=== PATIENT | male | born 1950 | race Caucasian/White ===

== ENCOUNTER 2024-02-06 12:49 | Emergency (ER) | payer MEDICARE, OTHER, SELFPAY ==
[2024-02-06 12:55] VITALS: BP 149/67; PULSE 57; RESP 18; TEMP 36.6; O2SAT 96; BMI 26.5
--- NOTE | 2024-02-06 13:10 | DI.US.S_ITS ---
PROCEDURE: US PERIPH VENOUS LOW EXTREM RT INDICATIONS: known superficial thrombosis, worsening TECHNIQUE: Real-time imaging, as well as color and pulse Doppler interrogation, were performed of the lower extremity deep veins from the inguinal ligament to the popliteal fossa, with documentation of the visualized calf veins. COMPARISON: None. FINDINGS: The common femoral, femoral, popliteal, and the visualized calf veins are normally compressible, and free of intraluminal thrombus. Color and pulse Doppler demonstrate normal phasic intraluminal flow. There is normal augmentation response to distal compression maneuver. Minimal thrombosis is present within the greater saphenous vein of the mid calf. IMPRESSION: No findings of lower extremity deep venous thrombosis. Mild appearance of superficial thrombophlebitis in the greater saphenous vein. Dictated by: Sharon Cedeno M.D. on 02/06/2024 at 13:48 Approved by: Sharon Cedeno M.D. on 02/06/2024 at 13:48
[2024-02-06 15:24] VITALS: BP 133/77; PULSE 57; RESP 17; O2SAT 96
--- NOTE | 2024-02-06 15:28 | ED.EXTPRO ---
HPI - Extremity Problem <Alana Ojeda PA-C - Last Filed: 02/06/24 15:36> General Chief complaint: Extremity Problem,Nontraumatic Stated complaint: sent from [facility] Time Seen by Provider: 02/06/24 14:02 History of Present Illness HPI Narrative: 73-year-old male with past medical history chronic venous insufficiency, superficial thrombophlebitis presents to the ED with worsening right lower leg pain and a skin ulcer. Patient states that he suffered some trauma 6 weeks ago, following which she was diagnosed in [place] with superficial thrombophlebitis, advised to take ibuprofen and 325 mg of aspirin daily. Patient states that he came here for the summer, over the last week his right lower leg has been more painful and he has noted a skin ulcer on his medial ankle. Denies numbness, tingling, weakness. Denies chest pain, shortness of breath. Able to bear weight and walk. Related Data Previous Rx's Medication Instructions Recorded cephalexin 500 mg capsule 500 mg PO QID 5 days #20 caps 02/06/24 Allergies Allergy/AdvReac Type Severity Reaction Status Date / Time No Known Drug Allergies Allergy Verified 02/06/24 12:55 Review of Systems <Alana Ojeda PA-C - Last Filed: 02/06/24 15:36> Constitutional Constitutional: Denies chills, Denies fatigue, Denies fever(s), Denies frequent falls, Denies lethargy and Denies weakness Eyes Eyes: Denies change in vision, Denies eye discharge, Denies irritation and Denies loss of vision ENT Ears, Nose, Mouth, and Throat: Denies change in voice, Denies dizziness, Denies neck pain, Denies sore throat and Denies throat swelling Cardiovascular Cardiovascular: Denies chest pain, Denies irregular heart rhythm, Denies lightheadedness, Denies palpitations, Denies dyspnea, Denies dyspnea on exertion and Denies orthopnea Respiratory Respiratory: Denies cough, Denies dyspnea, Denies dyspnea on exertion and Denies wheezing Gastrointestinal Gastrointestinal: Denies abdominal pain, Denies change in bowel habits, Denies diarrhea, Denies nausea and Denies vomiting Musculoskeletal Musculoskeletal: Denies neck pain and Denies numbness Comments: Right lower leg pain Integumentary/Breasts Skin/Breast: Denies pruritus, Denies erythema, Denies rash and Denies wounds Comments: Ulcer on medial ankle of right leg Neurologic Neurologic: Denies behavioral changes, Denies confusion, Denies dizziness, Denies frequent falls, Denies loss of vision, Denies numbness and Denies weakness Psychiatric Psychiatric: Denies anxiety, Denies behavioral changes, Denies confusion, Denies depression, Denies homicidal ideation and Denies suicidal ideation Endocrine Endocrine: Denies fatigue, Denies flushing and Denies palpitations Hematologic/Lymphatic Hematologic/Lymphatic: Denies easy bruising Allergic/Immunologic Allergic/Immunologic: Denies urticaria, Denies throat swelling and Denies wheezing Patient History <Alana Ojeda PA-C - Last Filed: 02/06/24 15:36> Social History Smoking Status: Never smoker Smoking Status: Never smoker alcohol intake frequency: 0-2 drinks per day Alcohol type: beer Substance Use Type: does not use Exam <Alana Ojeda PA-C - Last Filed: 02/06/24 15:36> Narrative Exam Narrative: Const General:?cooperative, healthy appearing and comfortable [facility] Head:?normal to inspection Ears:?hearing grossly normal bilaterally Nose:?external nose normal Face and sinus:?normal facial exam and sinuses nontender Mouth:?oral mucosae normal Throat:?posterior oropharynx normal Eyes General:?appearance normal, both eyes and all related structures Neck Neck:?normal visual inspection and no lymphadenopathy noted Resp Effort & Inspection:?normal respiratory effort Auscultation:?clear to auscultation bilaterally Cardio Rate:?regular rate Rhythm:?regular rhythm Musculoskeletal/integumentary Right lower leg and foot appears slightly more swollen than left. There is a skin ulcer on the medial aspect of the ankle with surrounding erythema. Neurovascularly intact. Compartments soft. Neuro General:?patient alert, patient awake and patient oriented x3 Initial Vital Signs Initial Vital Signs: Vital Signs Temperature 97.8 F 02/06/24 12:55 Pulse Rate 57 L 02/06/24 12:55 Respiratory Rate 18 02/06/24 12:55 Blood Pressure 149/67 H 02/06/24 12:55 Pulse Oximetry 96 02/06/24 12:55 Oxygen Delivery Method Room Air 02/06/24 12:55 <Rosa M Martinez MD - Last Filed: 02/06/24 15:51> Initial Vital Signs Initial Vital Signs: Vital Signs Temperature 97.8 F 02/06/24 12:55 Pulse Rate 57 L 02/06/24 12:55 Respiratory Rate 18 02/06/24 12:55 Blood Pressure 149/67 H 02/06/24 12:55 Pulse Oximetry 96 02/06/24 12:55 Oxygen Delivery Method Room Air 02/06/24 12:55 Course <Alana Ojeda PA-C - Last Filed: 02/06/24 15:36> Orders Ordered: ED Orders 02/06/24 13:10 US perip venous low extrem rt Stat Vital Signs Vital signs: Vital Signs - 8 hr 02/06/24 12:55 02/06/24 15:24 Temperature 97.8 F Pulse Rate 57 L 57 L Respiratory Rate 18 17 Blood Pressure 149/67 H 133/77 Pulse Oximetry 96 96 Oxygen Delivery Method Room Air Room Air <Rosa M Martinez MD - Last Filed: 02/06/24 15:51> Orders Ordered: ED Orders 02/06/24 13:10 [facility] venous low extrem rt Stat Vital Signs Vital signs: Vital Signs - 8 hr 02/06/24 12:55 02/06/24 15:24 Temperature 97.8 F Pulse Rate 57 L 57 L Respiratory Rate 18 17 Blood Pressure 149/67 H 133/77 Pulse Oximetry 96 96 Oxygen Delivery Method Room Air Room Air MDM - Extremity (Nontraumatic) <Alana Ojeda PA-C - Last Filed: 02/06/24 15:36> MDM Narrative Medical decision making narrative: 73-year-old male with past medical history chronic venous insufficiency, superficial thrombophlebitis presents to the ED with worsening right lower leg pain and a skin ulcer. Ultrasound shows mild appearance of superficial thrombophlebitis in the greater saphenous vein of the midcalf. The thrombosis is minimal. Given the thrombophlebitis and chronic venous insufficiency, patient does have some swelling of the right foot compared to the left. Patient has an ulcer on the medial aspect of his ankle, likely due to a combination of the chronic venous insufficiency and friction from foot wear. There is some surrounding erythema, suspicious for cellulitis. Prescribed antibiotics. Recommend patient avoid friction, apply compression stockings which he has, elevate the foot above heart level. Patient can continue NSAIDs, aspirin. Also recommend trialing lidocaine patches, heat packs. Recommend follow-up with PCP as soon as possible. ED return precautions were discussed with patient. Patient verbalized understanding. Medical records reviewed: Yes. Discharge Plan Departure Patient Disposition: Home Clinical Impression: Superficial thrombophlebitis Qualifiers: Superficial thrombophlebitis-Involved body area: lower extremity Laterality: right Qualified Code(s): I80.01 - Phlebitis and thrombophlebitis of superficial vessels of right lower extremity Cellulitis Qualifiers: Site of cellulitis: extremity Site of cellulitis of extremity: lower extremity Laterality: right Qualified Code(s): L03.115 - Cellulitis of right lower limb Instructions: DI for Cellulitis -- Adult, DI for Superficial Thrombophlebitis Activity Restrictions/Additional Instructions: You were evaluated in the ED today for right lower leg pain and a skin ulcer. The ultrasound shows no deep vein thrombosis, there is a mild appearance of superficial thrombophlebitis in the greater saphenous vein in the right calf area. This is consistent with the prior thrombophlebitis from 6 weeks ago. The lower leg ulcer could be due to a combination of chronic venous insufficiency and friction from foot wear due to the swelling. It is recommended that you avoid any friction to that area. There is also some concern for a skin infection for which you are being prescribed antibiotics. Please take the antibiotics as prescribed. Please keep the wound clean and dry and dressed while it heals well. You may continue to take 600 mg of ibuprofen every 8 hours with food. You may also apply lidocaine patches which are available under the brand name Salonpas. It is okay to apply Voltaren on the lower leg, however please avoid the area of the ulcer. Compression stockings and elevating your feet above heart level will help with the swelling and pain. Please follow-up with your PCP as soon as possible. Return to the ED if you have worsening symptoms, chest pain, shortness of breath. Prescriptions: New cephalexin 500 mg capsule 500 mg PO QID 5 Days Qty: 20 0RF Stand Alone Forms: Patient Portal/API ED Sign-out <Rosa M Martinez MD - Last Filed: 02/06/24 15:51> Cosign ED Attending Cospamature Attestation: I was immediately available in the department for consultation throughout this patient's visit. Rosa M Martinez MD
== END 2024-02-06 15:24 | disposition home or self-care (01) ==
PROVIDERS: Emergency Provider Student in an Organized Health Care Education/Training Program
DX: I80.01 Phlebitis and thrombophlebitis of superficial vessels of right lower extremity (principal); L03.115 Cellulitis of right lower limb; Z79.82 Long term (current) use of aspirin
CPT/HCPCS: 93971; 99283